=== PATIENT | male | born 2000 | race Caucasian/White ===

== ENCOUNTER 2018-10-17 19:25 | Emergency (ER) | payer OTHER ==
[2018-10-17] MEDS ORDERED: KETOROLAC TROMETHAMINE 60 MG/2 ML SDV IM ONE (21:50)
--- NOTE | 2018-10-17 21:51 | ER Document Report ---
ED Hip Pain/Injury - General Chief Complaint: Hip Pain Stated Complaint: HIP PAIN Time Seen by Provider: 10/17/18 21:40 Primary Care Provider: JOSÉ MATHEW MD [NO LOCAL MD] - Follow up as needed Mode of Arrival: Ambulatory Information source: Patient Notes: 17-year-old male presented to ED for complaint of pain to the low back bilateral pelvis is bilateral femurs. 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 He states he was discharged from the and is going through his medical discharge still. He states nothing has been done for this pain since he fell. Patient is alert oriented respirations regular and unlabored speaking in full sentences walks with a even steady gait. TRAVEL OUTSIDE OF THE [place] IN LAST 30 DAYS: No - HPI Patient complains to provider of: Injury - 9 months ago, Pain, Hip, Pelvis, Thigh Occurred: Other - Chronic Onset/Duration: Persistent Quality of pain: Achy, Sharp Pain Level: 4 Context: Other - Knee pain fell 9 months ago Symptoms since fall: Other Skin Color: Normal Rotation of extremity: None Pain with palpation of the pelvis: Yes Associated Symptoms: None Past Medical History - General Information source: Patient - Social History Smoking Status: Current Every Day Smoker - vapor Frequency of alcohol use: Social Drug Abuse: None Lives with: Family Family History: Reviewed & Not Pertinent Patient has suicidal ideation: No Patient has homicidal ideation: No - Medical History Medical History: Other - Fibromuscular dysplasia - Past Medical History Cardiac Medical History: Reports: None Pulmonary Medical History: Reports: None EENT Medical History: Reports: None Neurological Medical History: Reports: None Endocrine Medical History: Reports: None Renal/ Medical History: Reports: None Malignancy Medical History: Reports None GI Medical History: Reports: None Musculoskeletal Medical History: Reports Hx Musculoskeletal Deformity, Reports Hx Musculoskeletal Trauma Skin Medical History: Reports None Psychiatric Medical History: Reports: None Traumatic Medical History: Reports: None Infectious Medical History: Reports: None Surgical Hx: Negative Past Surgical History: Reports: None - Immunizations Immunizations up to date: Yes Hx Diphtheria, Pertussis, Tetanus Vaccination: Yes Review of Systems - Review of Systems Constitutional: No symptoms reported EENT: No symptoms reported Cardiovascular: No symptoms reported Respiratory: No symptoms reported Gastrointestinal: No symptoms reported Genitourinary: No symptoms reported Male Genitourinary: No symptoms reported Musculoskeletal: Back pain, Joint pain, Muscle pain, Muscle stiffness Skin: No symptoms reported Hematologic/Lymphatic: No symptoms reported Neurological/Psychological: No symptoms reported -: Yes All other systems reviewed and negative Physical Exam - Vital signs Vitals: Temp Pulse Resp BP Pulse Ox 98.9 F 93 H 22 176/115 H 97 10/17/18 19:41 10/17/18 19:41 10/17/18 19:41 10/17/18 19:41 10/17/18 19:41 Interpretation: Normal - General General appearance: Appears well, Alert - HEENT Head: Normocephalic, Atraumatic Eyes: Normal Pupils: PERRL - Respiratory Respiratory status: No respiratory distress Chest status: Nontender Breath sounds: Normal Chest palpation: Normal - Cardiovascular Rhythm: Regular Heart sounds: Normal auscultation Murmur: No - Abdominal Inspection: Normal Distension: No distension Bowel sounds: Normal Tenderness: Nontender Organomegaly: No organomegaly - Back Back: Normal, Tender. No: Deformity/step-off, CVA tenderness, Vertebra tenderness, Scars, Scoliosis, Wounds - Extremities General upper extremity: Normal inspection, Nontender, Normal color, Normal ROM, Normal temperature General lower extremity: Normal inspection, Nontender, Normal color, Normal ROM, Normal temperature, Normal weight bearing. No: Stephany's sign Hip: Tender - Bilateral. No: Deformity, Dislocation, Ecchymosis, Instability, Laceration, Pain with ROM, Unable to bear weight Thigh: Tender - Bilateral - Neurological Neuro grossly intact: Yes Cognition: Normal Orientation: AAOx4 Richard Coma Scale Eye Opening: Spontaneous Richard Coma Scale Verbal: Oriented Richard Coma Scale Motor: Obeys Commands [place] Coma Scale Total: 15 Speech: Normal Motor strength normal: LUE, RUE, LLE, RLE Sensory: Normal - Psychological Associated symptoms: Normal affect, Normal mood - Skin Skin Temperature: Warm Skin Moisture: Dry Skin Color: Normal Course - Re-evaluation Re-evalutation: 10/17/18 23:24 CT and x-ray report discussed with patient and written report given to patient to [facility]. As these are chronic pain patient was instructed on use of ibuprofen and Tylenol elevation and ice. Patient to [facility] with [facility] doctor for any further treatment for these areas. Patient verbalized understanding and agreement with treatment plan the patient was discharged home. Patient's blood pressure was 162/92 at discharge. This was a manual blood pressure. Patient was instructed to please follow-up with his [facility] doctor to get more blood pressure treatment as this was high for person his age. He states it is a chronic problem he understood that he needed to follow-up. - Vital Signs Vital signs: Temp Pulse Resp BP Pulse Ox 98.9 F 93 H 22 176/115 H 97 10/17/18 19:41 10/17/18 19:41 10/17/18 19:41 10/17/18 19:41 10/17/18 19:41 - Diagnostic Test Radiology reviewed: Image reviewed, Reports reviewed Discharge - Discharge Clinical Impression: Chronic pelvic pain in male, Chronic hip pain, bilateral Condition: Stable Disposition: HOME, SELF-CARE Additional Instructions: Chronic Pain Control Stress, inactivity, and depression make pain more severe regardless of the cause of the pain. Stress and poor physical condition can cause pain such as headaches and backache. Relaxation: Rest in a quiet place with your eyes closed for 20 minutes twice daily. Concentrate on a pleasant image, or simply "feel" your breathing. Clear your mind. Stress management: Deal with your "stressors." Either take action, or eliminate the stressor from your life. Don't let things hang over you. Accept those things you can't change. Nutrition: Eat small, balanced meals -- don't skip, don't overeat. Meals should be high-carbohydrate, low-sugar, low-fat. Exercise: Exercise helps painful conditions and eases stress. Get 30 minutes of moderate exercise, five days a week. Do an activity that does not flare your pain. Precautions: Pain which continues to disrupt daily activities, or which changes in nature, requires a medical evaluation. Pain Clinic referral is available. We do not manage chronic pain in the Emergency Department. 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 We do not provide repeated medication management of chronic painful conditions. If you wish, we can provide the name of local pain management physicians. Acetaminophen Acetaminophen may be taken for pain relief or fever control. It's much safer than aspirin, offering a wider range of "safe" dosages. It is safe during . Some brand names are Tylenol, Panadol, Datril, Anacin 3, Tempra, and Liquiprin. Acetaminophen can be repeated every four hours. The following are maximum recommended dosages: WEIGHT Dose Drops Elixir Chewable(80mg) (LBS.) drprs=droppers tsp=teaspoon 6 40 mg .4 ml (1/2) 6-11 80 mg .8 ml (full) 1/2 tsp 1 tab 12-16 120 mg 1 1/2 drprs 3/4 tsp 1 1/2 tabs 17-23 160 mg 2 drprs 1 tsp 2 tabs 24-30 240 mg 3 drprs 1 1/2 tsp 3 tabs 30-35 320 mg 2 tsp 4 tabs 36-41 360 mg 2 1/4 tsp 4 1/2 tabs 42-47 400 mg 2 1/2 tsp 5 tabs 48-53 480 mg 3 tsp 6 tabs 54-59 520 mg 3 1/4 tsp 6 1/2 tabs 60-64 560 mg 3 1/2 tsp 7 tabs 65-70 600 mg 3 3/4 tsp 7 1/2 tabs 71-76 640 mg 4 tsp 8 tabs 77-82 720 mg 4 1/2 tsp 9 tabs 83-88 800 mg 5 tsp 10 tabs >89 pounds or adults 650 mg to 900 mg Acetaminophen can be repeated every four hours. Maximum daily dose not to exceed 4000 mg. These maximum recommended dosages are slightly higher than the dosages written on the product container, but these dosages are very safe and well below the toxic dosage for acetaminophen. Ibuprofen Ibuprofen is an excellent, safe drug for pain control. In addition, it has potent antiinflammatory effects which are beneficial, especially in the treatment of injuries, arthritis, or tendonitis. It's best to take ibuprofen with food. Persons with ulcer disease or allergy to aspirin should notify their physician of this before taking ibuprofen. Take the medication exactly as prescribed. Don't take additional doses unless instructed to do so by your doctor. If you develop wheezing, shortness of breath, hives, faintness, stomach pain, vomiting, or dark black stools, return for re-evaluation at once. Stretching Exercises for the Back The physician has recommended that you begin stretching exercises for your back. These are often used even while the back is painful. However, you should notify the physician if the activities seem to increase your pain. PELVIC TILT: Lie flat on your back with knees bent. Tighten your stomach and buttock muscles so it flattens your lower back against the floor. Hold 10 seconds. Repeat 10 times, twice daily. KNEE RAISE: Lying on the back with knees bent, raise one knee to your chest, then the other. Hold both knees against the chest 10 seconds, then lower one knee at a time. Repeat 10 times, twice daily. PARTIAL TRUNK RAISE: Lie face down, arms at your sides. Keeping your waist on the floor, use your arms raise your chest up. Support yourself on your elbows for 30 seconds. Repeat twice daily, increasing the time to two minutes as you recover. Your CT of the pelvis and your bilateral hip x-rays do not show any obvious cause for your pain. Please follow-up with your [facility] doctor and have them reev aluate your pain to your hips and back. Please do stretching exercises to your back and pelvis and legs as tolerated until you follow-up with your primary doctor. Please slowly increase your activity to include walking as tolerated. FOLLOW-UP CARE: If you have been referred to a physician for follow-up care, call the physicians office for an appointment as you were instructed or within the next two days. If you experience worsening or a significant change in your symptoms, notify the physician immediately or return to the Emergency Department at any time for re-evaluation. Forms: Elevated Blood Pressure, Smoking Cessation Education Referrals: JOSÉ MATHEW MD [NO LOCAL MD] - Follow up as needed
--- NOTE | 2018-10-17 22:13 | RADIOLOGY REPORT (SQ) ---
EXAM DESCRIPTION: XR FEMUR BILATERAL COMPLETED DATE/TME: 10/17/2018 21:48 CLINICAL HISTORY: 17 years, Male, chronic pain after fall 8 months ago getting worse COMPARISON: None. NUMBER OF VIEWS: Eight TECHNIQUE: Frontal and lateral radiographs of the bilateral femurs were obtained. LIMITATIONS: None. FINDINGS: Visualized osseous structures are normal in appearance. Joint spaces are well-maintained. No acute fracture or dislocation is evident. IMPRESSION: No acute osseous anomaly. copyright 2010 [employer]- All Rights Reserved
--- NOTE | 2018-10-17 22:20 | RADIOLOGY REPORT (SQ) ---
EXAM DESCRIPTION: CT PELVIS WITHOUT IV CONTRAST COMPLETED DATE/TME: 10/17/2018 21:48 CLINICAL HISTORY: 17 years, Male, chronic pain after fall 8 months ago getting worse COMPARISON: None. TECHNIQUE: Noncontrast CT of the pelvis was performed. Coronal and sagittal reformations were created. Images stored on PACS. All CT scanners at this facility use dose modulation, iterative reconstruction, and/or weight based dosing when appropriate to reduce radiation dose to as low as reasonably achievable (ALARA). [facility]: Dose Right [facility]: CareDose [facility]: Dose Right [facility]: Teradose 4D [facility]: Armor5 LIMITATIONS: None. FINDINGS: Visualized portions of the abdomen show no suspicious abnormality. Focal well-corticated ossific density is noted immediately adjacent to the right lesser trochanter on image 140 of series 2. Otherwise, remaining visualized osseous structures are normal in appearance without acute fracture or dislocation. IMPRESSION: No acute osseous anomaly. Well-corticated ossific density projecting adjacent to the lesser trochanter on the right likely indicates sequela of remote avulsion injury (specifically the iliopsoas). TECHNICAL DOCUMENTATION: Quality ID # [id number]: Final reports with documentation of one or more dose reduction techniques (e.g., Automated exposure control, adjustment of the mA and/or kV according to patient size, use of iterative reconstruction technique) copyright 2011 [employer]- All Rights Reserved
[2018-10-17 23:31] VITALS: BP 162/92
== END 2018-10-17 23:10 | disposition home or self-care (01) ==
LOC: ER 19:25
DX: M25.551 Pain in right hip (principal); M25.552 Pain in left hip; R10.2 Pelvic and perineal pain; G89.29 Other chronic pain; M25.569 Pain in unspecified knee; W19.XXXA Unspecified fall, initial encounter; Y99.1 Military activity; I10 Essential (primary) hypertension; F17.290 Nicotine dependence, other tobacco product, uncomplicated
CPT/HCPCS: 72192; 73552; 99284

== ENCOUNTER → 2018-10-21 | Outpatient (CLI) | payer OTHER ==
--- NOTE | 2018-10-21 10:09 | RADIOLOGY REPORT (SQ) ---
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 TECHNIQUE: Realtime and static grayscale images acquired. Selected color Doppler, velocities and spe ctral images recorded. LIMITATIONS: None. FINDINGS: RIGHT KIDNEY: RENAL ARTERY VELOCITIES: 109 cm/sec. Segmental artery velocity 50 cm/sec. RENAL VEIN: Color doppler flow present, patent. VELOCITY RATIO: 0.82. Normal waveforms. KIDNEY: Normal size. No significant pathology. LEFT KIDNEY: RENAL ARTERY VELOCITIES: 113 cm/sec. Segmental artery velocity 52 cm/sec. RENAL VEIN: Color doppler flow present, patent. VELOCITY RATIO: 0.85. Normal waveforms. KIDNEY: Normal size. No significant pathology. BLADDER: Normal. OTHER: No other significant finding. IMPRESSION: NO DOPPLER EVIDENCE OF HEMODYNAMICALLY SIGNIFICANT RENAL ARTERY STENOSIS. COMMENT: NORMAL RENAL ARTERY/AORTA VELOCITY RATIO IS LESS THAN OR EQUAL TO 3.5. TECHNICAL DOCUMENTATION: JOB ID: [id number] [employer]- All Rights Reserved Reading location - IP/workstation name: [email or web address]
== END ==
LOC: RAD 08:18
PROVIDERS: ATTEND Surgery Vascular Surgery
DX: I77.3 Arterial fibromuscular dysplasia (principal)
CPT/HCPCS: 93975

== ENCOUNTER 2019-04-08 02:40 | Emergency (ER) | payer OTHER ==
[2019-04-08] MEDS ORDERED: ALBUTEROL SULFATE 0.083% NEB 2.5 MG/3 ML AMPUL NEB ONE (03:08)
[2019-04-08] MEDS ORDERED: PREDNISONE 20 MG TABLET PO ONE (03:09)
--- NOTE | 2019-04-08 03:13 | ER Document Report ---
ED General - General Chief Complaint: Breathing Difficulty Stated Complaint: DIFFICULTY BREATHING Time Seen by Provider: 04/08/19 03:00 TRAVEL OUTSIDE OF THE [place] IN LAST 30 DAYS: No - HPI Notes: 18-year-old male with a past medical history significant for asthma, smoking and vaping presents complaining of shortness of breath that has been getting progressively worse over the past several days. Patient states he quit smoking and vaping approximately a month ago. Patient states he thought he "outgrew" his asthma when he was in his teens but is now having symptoms similar to his asthma exacerbations when he was a child. Patient denies fever. Patient denies productive cough. Past Medical History - General Information source: Patient - Social History Smoking Status: Former Smoker Drug Abuse: None Family History: Reviewed & Not Pertinent Patient has suicidal ideation: No Patient has homicidal ideation: No - Past Medical History Cardiac Medical History: Reports: None Pulmonary Medical History: Reports: Hx Asthma EENT Medical History: Reports: None Neurological Medical History: Reports: None Endocrine Medical History: Reports: None Renal/ Medical History: Reports: None Malignancy Medical History: Reports None GI Medical History: Reports: None Musculoskeletal Medical History: Reports Hx Musculoskeletal Deformity, Reports Hx Musculoskeletal Trauma Skin Medical History: Reports None Psychiatric Medical History: Reports: None Traumatic Medical History: Reports: None Infectious Medical History: Reports: None - Immunizations Immunizations up to date: Yes Hx Diphtheria, Pertussis, Tetanus Vaccination: Yes Review of Systems - Review of Systems Constitutional: No symptoms reported EENT: No symptoms reported Cardiovascular: No symptoms reported Respiratory: Short of breath Gastrointestinal: No symptoms reported Genitourinary: No symptoms reported Male Genitourinary: No symptoms reported Musculoskeletal: No symptoms reported Skin: No symptoms reported Hematologic/Lymphatic: No symptoms reported Neurological/Psychological: No symptoms reported -: Yes All other systems reviewed and negative Physical Exam - Vital signs Vitals: Temp Pulse Resp BP Pulse Ox 97.9 F 93 20 187/126 H 94 04/08/19 02:46 04/08/19 02:46 04/08/19 02:46 04/08/19 02:46 04/08/19 02:46 - Notes Notes: PHYSICAL EXAMINATION: GENERAL: Well-appearing, well-nourished and in no acute distress. HEAD: Atraumatic, normocephalic. EYES: Pupils equal round and reactive to light, extraocular movements intact, sclera anicteric, conjunctiva are normal. ENT: nares patent, oropharynx clear without exudates. Moist mucous membranes. NECK: Normal range of motion, supple without lymphadenopathy LUNGS: Patient has some audible wheezing in his left lung field on exam. HEART: Regular rate and rhythm without murmurs ABDOMEN: Soft, nontender, normoactive bowel sounds. No guarding, no rebound. No masses appreciated. EXTREMITIES: Normal range of motion, no pitting or edema. No cyanosis. NEUROLOGICAL: No focal neurological deficits. Moves all extremities spontaneously and on command. PSYCH: Normal mood, normal affect. SKIN: Warm, Dry, normal turgor, no rashes or lesions noted. Course - Re-evaluation Re-evalutation: 04/08/19 04:24 Patient states he feels as though saying he is breathing better after his albuterol nebulizer treatment. ED MSE evaluation and results discussed with patient. All questions were answered. Emergency signs and symptoms/reasons to return to the emergency department by calling 911 discussed with patient. - Vital Signs Vital signs: Temp Pulse Resp BP Pulse Ox 97.9 F 93 20 173/108 H 97 04/08/19 02:46 04/08/19 02:46 04/08/19 02:46 04/08/19 04:01 04/08/19 04:01 - Diagnostic Test Radiology reviewed: Reports reviewed Discharge - Discharge Clinical Impression: Acute bronchitis Condition: Good Disposition: HOME, SELF-CARE Instructions: Bronchitis ([facility]) Additional Instructions: HOME CARE INSTRUCTIONS & INFORMATION: Thank you for choosing us for your medical needs. We hope you're satisfied with the care you received. After you leave, you must properly care for your problem and, at the same time, observe its progress. Any condition can change. Some illnesses can change rapidly over hours or days. If your condition worsens, return to the Emergency Department or see your physician promptly. ABOUT YOUR X-RAYS AND EKG'S: If you had an EKG or X-rays taken, they have been read by the Emergency Physician. The X-rays and EKG's will also be read by a Radiologist or Weather Analyst within 24 hours. If discrepancies are noted, you will be notified by telephone. Please be certain the ED has a correct telephone number & address where you can be reached. Also, realize that some fractures or abnormalities do not show up on initial X-rays. If your symptoms continue, see your physician. ABOUT YOUR LABORATORY TEST: If you had laboratory tests, the results have been reviewed by the Emergency Physician. Some test results (for example cultures) may not be available for several days. You will be contacted if any test result shows you need additional treatment. Please be certain the ED has a correct telephone number and address where you can be reached. ABOUT YOUR MEDICATIONS: You will receive instructions on how to take your medicine on the prescription label you receive. Additional information may be provided by the Pharmacy. If you have questions afterwards, call the ED for clarification or further instructions. Some prescribed medications may cause drowsiness. Do not perform tasks such as driving a car or operating machinery without consulting your Pharmacist. If you feel you need a refill of pain medication, your condition will need re-evaluation. Please do not call for a refill of any medication. ABOUT YOUR SIGNATURE: Signature of this document acknowledges to followin. Understanding that you received emergency treatment and that you may be released before al medical problems are known or treated. Please be certain the ED has a correct phone number & address where you can be reached. 2. Acknowledgement that you will arrange for follow-up care as recommended. 3. Authorization for the Emergency Physician to provide information to your follow-up Physician in order to maximize your care. AT ANY TIME, IF YOUR SYMPTOMS CHANGE SIGNIFICANTLY OR WORSEN OR YOU DEVELOP NEW SYMPTOMS, RETURN TO THE EMERGENCY DEPARTMENT IMMEDIATELY FOR RE-EVALUATION. OUR GOAL IS TO PROVIDE EXCELLENT MEDICAL CARE! WE HOPE THAT WE HAVE MET YOUR EXPECTATIONS DURING YOUR EMERGENCY DEPARTMENT VISIT AND THAT YOU FEEL YOU HAVE RECEIVED EXCELLENT CARE! Return to the Emergency Department without delay if any worse. Prescriptions: Prednisone [Deltasone 20 mg Tablet] 3 tab PO DAILY 4 Days #12 tablet Albuterol Sulfate [Proair HFA Inhalation Aerosol 8.5 gm MDI] 2 puff IH Q4H PRN #1 [id number] PRN Reason: Referrals: RIC COON MD [HONORARY] - 04/10/19
--- NOTE | 2019-04-08 03:42 | RADIOLOGY REPORT (SQ) ---
EXAM DESCRIPTION: XR CHEST 1 VIEW COMPLETED DATE/TME: 04/08/2019 03:08 CLINICAL HISTORY: 18 years, Male, dyspnea COMPARISON: None. NUMBER OF VIEWS: One TECHNIQUE: AP view of the chest LIMITATIONS: None. FINDINGS: Lungs are clear. The heart is normal in size. There is no pneumothorax or pleural effusion. There is no acute fracture. IMPRESSION: No acute cardiopulmonary abnormality copyright 2010 [employer]- All Rights Reserved
[2019-04-08 04:52] VITALS: BP 165/125
== END 2019-04-08 04:52 | disposition home or self-care (01) ==
LOC: ER 02:40
DX: J20.9 Acute bronchitis, unspecified (principal); F17.200 Nicotine dependence, unspecified, uncomplicated
CPT/HCPCS: 94640; 99284; 71045; J7512

== ENCOUNTER 2019-06-21 04:43 | Emergency (ER) | payer SELFPAY ==
[2019-06-21] MEDS ORDERED: PREDNISONE 20 MG TABLET PO ONE (04:55)
[2019-06-21] MEDS ORDERED: IPRATROPIUM/ALBUTEROL 0.5-2.5 MG/3 ML AMPUL NEB ONE (04:55)
[2019-06-21] MEDS: ALBUTEROL SULFATE 0.083% NEB 2.5 MG/3 ML AMPUL NEB SCH ×2 (05:04→06:14)
--- NOTE | 2019-06-21 06:04 | ER Document Report ---
ED General - General Chief Complaint: Shortness Of Breath Stated Complaint: BREATHING DIFFICULTY Time Seen by Provider: 06/21/19 05:59 Mode of Arrival: Ambulatory Information source: Patient TRAVEL OUTSIDE OF THE U.S. IN LAST 30 DAYS: No - HPI Onset: Other - over the last month or so Onset/Duration: Gradual Quality of pain: No pain Severity: Mild Pain Level: Denies Associated symptoms: Shortness of breath, Other - wheezing, cough Exacerbated by: Denies Relieved by: Denies Similar symptoms previously: Yes - with prior asthma flare ups Recently seen / treated by doctor: No Notes: 18 year old male with a history of Asthma here for mild wheezing and shortness of breath off and on for the last month or so in the setting of running out of his albuterol inhaler. The patient was last seen in this ER in March 2019 for the same symptoms. The patient is not on a daily inhaled steroid. The patient has a PCP but he has not seen him in some time. The patient denies fevers, chills, sweats productive cough, sore throat. The patient says his asthma seems the worst when laying down at night to go to bed. - Related Data Allergies/Adverse Reactions: No Known Allergies Allergy (Unverified 06/21/19 04:52) Past Medical History - General Information source: Patient - Social History Smoking Status: Current Every Day Smoker Chew tobacco use (# tins/day): No Frequency of alcohol use: None Drug Abuse: None Family History: Reviewed & Not Pertinent Patient has suicidal ideation: No Patient has homicidal ideation: No Pulmonary Medical History: Reports: Hx Asthma Musculoskeletal Medical History: Reports Hx Musculoskeletal Deformity, Reports Hx Musculoskeletal Trauma - Immunizations Immunizations up to date: Yes Hx Diphtheria, Pertussis, Tetanus Vaccination: Yes Review of Systems - Review of Systems Constitutional: No symptoms reported EENT: No symptoms reported Cardiovascular: No symptoms reported Respiratory: Short of breath, Wheezing Gastrointestinal: No symptoms reported Genitourinary: No symptoms reported Male Genitourinary: No symptoms reported Musculoskeletal: No symptoms reported Skin: No symptoms reported Hematologic/Lymphatic: No symptoms reported Neurological/Psychological: No symptoms reported -: Yes All other systems reviewed and negative Physical Exam - Vital signs Vitals: Temp Pulse Resp BP Pulse Ox 97.5 F 57 L 18 142/94 H 98 06/21/19 04:46 06/21/19 04:46 06/21/19 04:46 06/21/19 04:46 06/21/19 04:46 - Notes Notes: GENERAL: Well-appearing, well-nourished and in no acute distress. HEAD: Atraumatic, normocephalic. EYES: Pupils equal round and reactive to light, extraocular movements intact, sclera anicteric, conjunctiva are normal. ENT: TMs normal, nares patent, oropharynx clear without exudates. Moist mucous membranes. NECK: Normal range of motion, supple without lymphadenopathy or JVD. LUNGS: Breath sounds clear to auscultation bilaterally and equal. No wheezes rales or rhonchi. HEART: Regular rate and rhythm without murmurs, rubs or gallops. ABDOMEN: Soft, nontender, normoactive bowel sounds. No guarding, no rebound. No masses appreciated. EXTREMITIES: Normal range of motion, no pitting or edema. No clubbing or cyanosis. NEUROLOGICAL: Cranial nerves II through XII grossly intact. Normal speech, normal gait. PSYCH: Normal mood, normal affect. SKIN: Warm, Dry, normal turgor, no rashes or lesions noted. Course - Re-evaluation Re-evalutation: 06/21/19 06:02 The patient has run out of his inhaler. He has no wheezing here in the ER. Will prescribe an Albuterol rescue inhaler and have the patient follow up with his PCP to discuss starting a daily inhaled steroid given the frequency of his asthma flares. - Vital Signs Vital signs: Temp Pulse Resp BP Pulse Ox 97.5 F 57 L 18 142/94 H 98 06/21/19 04:46 06/21/19 04:46 06/21/19 04:46 06/21/19 04:46 06/21/19 04:46 Discharge - Discharge Clinical Impression: Asthma Qualifiers: Asthma severity: moderate Asthma persistence: unspecified Asthma complication type: uncomplicated Qualified Code(s): J45.909 - Unspecified asthma, uncomplicated Disposition: HOME, SELF-CARE Instructions: Asthma ([facility]) Additional Instructions: Use an Albuterol Inhaler as needed for wheezing and shortness of breath. Follow up with your primary care doctor to discuss possibly starting on a daily inhaled steroid. Prescriptions: Albuterol Sulfate [Proair HFA Inhalation Aerosol 8.5 gm MDI] 2 puff IH Q4H PRN #1 mdi PRN Reason:
[2019-06-21 06:20] VITALS: BP 110/89
--- NOTE | 2019-06-21 08:03 | EKG REPORT ---
SEVERITY:- NORMAL ECG - SINUS RHYTHM : Confirmed by: Venus Sanabria MD 21-Jun-2019 08:02:28
== END 2019-06-21 06:22 | disposition home or self-care (01) ==
LOC: ER 04:43
DX: J45.909 Unspecified asthma, uncomplicated (principal); R06.02 Shortness of breath; F17.200 Nicotine dependence, unspecified, uncomplicated
CPT/HCPCS: 93005; 94640; 99284; 93010; J7512; J7620

== ENCOUNTER 2019-11-13 20:25 | Emergency (ER) | payer SELFPAY ==
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
[2019-11-13] MEDS ORDERED: NORMAL SALINE 1000 ML 1,000 ML IV ONE (20:57)
--- NOTE | 2019-11-13 21:05 | ER Document Report ---
ED Medical Screen (RME) - General Chief Complaint: Possible Overdose Stated Complaint: IVC Time Seen by Provider: 11/13/19 20:48 Mode of Arrival: Wheelchair Information source: Patient Notes: Patient presents with law enforcement under IVC for attempted suicide. Patient reports taking handfuls of pills. Patient states that people were chasing him and was attempting to end his life. Spoke with patient's who states that he became upset whenever her command was trying to enter their home and things escalated. Patient's states that they are in the process of getting . Patient acknowledges taking lisinopril and hydrochlorothiazide although cannot state how many pills he took. Patient does present hypotensive. I have greeted and performed a rapid initial assessment of this patient. A comprehensive ED assessment and evaluation of the patient, analysis of test results and completion of the medical decision making process will be conducted by additional ED providers. TRAVEL OUTSIDE OF THE [place] IN LAST 30 DAYS: No - Related Data Allergies/Adverse Reactions: No Known Allergies Allergy (Unverified 06/21/19 04:52) Home Medications: HCTZ. lisinopeil Past Medical History - Social History Frequency of alcohol use: None Drug Abuse: None Pulmonary Medical History: Reports: Hx Asthma Musculoskeltal Medical History: Reports Hx Musculoskeletal Deformity, Reports Hx Musculoskeletal Trauma - Immunizations Immunizations up to date: Yes Hx Diphtheria, Pertussis, Tetanus Vaccination: Yes Physical Exam - Vital signs Vitals: Temp Pulse Resp BP Pulse Ox 98.6 F 66 16 84/45 L 96 11/13/19 20:29 11/13/19 20:29 11/13/19 20:29 11/13/19 20:29 11/13/19 20:29 - General General appearance: Alert Notes: Pale, hypotensive - Psychological Associated symptoms: Flat affect Course - Re-evaluation Re-evalutation: 11/13/19 21:02 Called and spoke with poison control who states that if patient only took hydrochlorothiazide and lisinopril they advise monitoring for any hypotension, bradycardia and hyperkalemia. They recommend supportive care, IV fluids and obtain a CMP, EKG, CK and magnesium. They recommend observing for 6 hours. If it is discovered that patient took amlodipine as well they advise calling back for further recommendations. - Vital Signs Vital signs: Temp Pulse Resp BP Pulse Ox 98.6 F 66 16 84/45 L 96 11/13/19 20:44 11/13/19 20:29 11/13/19 20:29 11/13/19 20:29 11/13/19 20:29
[2019-11-13] MEDS ORDERED: ACTIVATED CHARCOAL 25 GM BOTTLE PO ONE (21:09)
--- NOTE | 2019-11-13 21:42 | ER Document Report ---
ED Psych Disorder / Suicide - General Chief Complaint: Possible Overdose Stated Complaint: IVC Time Seen by Provider: 11/13/19 20:48 Mode of Arrival: Wheelchair Information source: Patient Notes: 18-year-old male presented to ED with long fourth month for taken a handful of pills. The patient states that he was having problems with his significant and he had taken a handful of her pills to include lisinopril and hydrochlorothiazide. He states he took some of his other medicines as well. He states his is leaving him and he became very upset. He is refusing any treatment he would not let labs redrawn refused the charcoal. When he first came in his blood pressure was very low his blood pressure now is 128/78. I have spoken with Dr. sauceda who states that we need to get the blood work even if we have to restrain him. Patient is absolutely refusing any blood work and IV fluids. Patient states he did tell the police that he wanted to because nobody cared about him and that someone was chasing him and trying to kill him. When police found him he ran away from the place when they were trying to find him to find out how he was. Dates nobody wants to help him everybody wants to hurt him. He states this is against his orthodoxy believes to put IVs and draw blood from him and that is why he does not want a strong his blood or putting IVs in him. TRAVEL OUTSIDE OF THE [place] IN LAST 30 DAYS: No - HPI Patient complains to provider of: Aggression, Agitated, Overdose, Suicidal ideation, Suicidal attempt Onset: Just prior to arrival Onset was: Sudden Quality of pain: No pain Severity: None Pain Level: Denies Suicide Risk Factors: Other - Sleeve and name Situational problems related to: Spouse Suicide Attempt Method: Overdose Overdose of: Anti-depressants, Other - Blood pressure medications Strength: Lisinopril hydrochlo Amount: Undetermined Time of ingestion: 16:30 Normal mood: No Associated symptoms: Aggressive, Angry Similar symptoms previously: Yes - Related Data Allergies/Adverse Reactions: No Known Allergies Allergy (Unverified 06/21/19 04:52) Home Medications: HCTZ. lisinopeil Past Medical History - General Information source: Patient - Social History Smoking Status: Current Every Day Smoker Cigarette use (# per day): Yes - ppd Smoking Education Provided: Yes - 4 min Frequency of alcohol use: None Drug Abuse: None Lives with: Family Family History: Reviewed & Not Pertinent Patient has homicidal ideation: No - Past Medical History Cardiac Medical History: Reports: None Pulmonary Medical History: Reports: Hx Asthma EENT Medical History: Reports: None Neurological Medical History: Reports: None Endocrine Medical History: Reports: None Renal/ Medical History: Reports: None Malignancy Medical History: Reports None GI Medical History: Reports: None Musculoskeletal Medical History: Reports Hx Musculoskeletal Deformity, Reports Hx Musculoskeletal Trauma Psychiatric Medical History: Reports: None Traumatic Medical History: Reports: None Infectious Medical History: Reports: None Surgical Hx: Negative Past Surgical History: Reports: None - Immunizations Immunizations up to date: Yes Hx Diphtheria, Pertussis, Tetanus Vaccination: Yes Review of Systems - Review of Systems Constitutional: No symptoms reported EENT: No symptoms reported Cardiovascular: No symptoms reported Respiratory: No symptoms reported Gastrointestinal: No symptoms reported Genitourinary: No symptoms reported Male Genitourinary: No symptoms reported Musculoskeletal: No symptoms reported Skin: No symptoms reported Hematologic/Lymphatic: No symptoms reported Neurological/Psychological: No symptoms reported, Depression, Suicidal ideation, Other - Took handful of pills -: Yes All other systems reviewed and negative Physical Exam - Vital signs Vitals: Temp Pulse Resp BP Pulse Ox 98.6 F 66 16 84/45 L 96 11/13/19 20:29 11/13/19 20:29 11/13/19 20:29 11/13/19 20:29 11/13/19 20:29 Interpretation: Normal - General General appearance: Appears well, Alert - HEENT Head: Normocephalic, Atraumatic Eyes: Normal Pupils: PERRL - Respiratory Respiratory status: No respiratory distress Chest status: Nontender Breath sounds: Normal Chest palpation: Normal - Cardiovascular Rhythm: Regular Heart sounds: Normal auscultation Murmur: No - Abdominal Inspection: Normal Distension: No distension Bowel sounds: Normal Tenderness: Nontender Organomegaly: No organomegaly - Back Back: Normal, Nontender - Extremities General upper extremity: Normal inspection, Nontender, Normal color, Normal ROM, Normal temperature General lower extremity: Normal inspection, Nontender, Normal color, Normal ROM, Normal temperature, Normal weight bearing. No: Stephany's sign - Neurological Neuro grossly intact: Yes Cognition: Normal Orientation: AAOx4 Vinton Coma Scale Eye Opening: Spontaneous Richard Coma Scale Verbal: Oriented V[place] Coma Scale Motor: Obeys Commands Vinton Coma Scale Total: 15 Speech: Normal Motor strength normal: LUE, RUE, LLE, RLE Sensory: Normal - Psychological Associated symptoms: Aggressive, Agitated, Angry, Uncooperative - Skin Skin Temperature: Warm Skin Moisture: Dry Skin Color: Normal Course - Re-evaluation Re-evalutation: 11/13/19 22:37 Restraints were applied when patient would not cooperate and was very aggressive with the nurse. He has now come down he states he would leave his IVs and in his monitoring equipment in place if he could get out of the restraints. He states he needs to go to the bathroom at this time. I have told him that the restraints will be removed at this time as long as he is not aggressive with the nurses and cooperates with this treatment. He has verbalized that he will try this. Nurse has been told to let me know if he becomes aggressive again. - Vital Signs Vital signs: Temp Pulse Resp BP Pulse Ox 98.6 F 95 16 107/56 L 97 11/15/19 09:53 11/15/19 09:53 11/15/19 09:53 11/15/19 09:53 11/15/19 09:53 - Laboratory Result Diagrams: 11/13/19 21:45 11/13/19 21:45 Laboratory results interpreted by me: 11/13/19 11/13/19 11/13/19 21:45 21:45 22:42 WBC 13.1 H Hgb 17.1 H Absolute Neuts (auto) 9.4 H Chloride 108 H Creatinine 1.61 H Est GFR (MDRD) Non-Af 55 L Magnesium 2.8 H Total Protein 8.6 H Albumin 5.4 H Urine Ketones TRACE H Salicylates < 1.0 L Acetaminophen < 10 L Discharge - Discharge Clinical Impression: possible overdose htn medications, Suicidal ideation Disposition: PSYCH HOSP/UNIT
[2019-11-13 22:38] LABS: ALBUMIN 5.4 g/dL (3.5-5.0); ALKALINE PHOSPHATASE 93 U/L (38-126); ANION GAP 11 (5-19); ASPARTATE AMINO TRANSFERASE 28 U/L (17-59); BILIRUBIN,DIRECT 0.1 mg/dL (0.0-0.4); BILIRUBIN,TOTAL 1.1 mg/dL (0.2-1.3); BLOOD UREA NITROGEN 17 mg/dL (7-20); CALCIUM 10.1 mg/dL (8.4-10.2); CARBON DIOXIDE 23 mmol/L (22-30); CHLORIDE 108 mmol/L (98-107); CREATINE KINASE 142 U/L (55-170); GLUCOSE 99 mg/dL (75-110); TOTAL PROTEIN 8.6 g/dL (6.3-8.2)
[2019-11-13 22:42] LABS: ACETAMINOPHEN < 10 ug/mL (10-30); ALCOHOL < 10 mg/dL (NONE DETECTED); SALICYLATE < 1.0 mg/dL (2.0-20.0)
[2019-11-13 22:58] LABS: APPEARANCE,URINE CLEAR; BILIRUBIN,URINE NEGATIVE (NEGATIVE); COLOR,URINE STRAW; GLUCOSE, URINE NEGATIVE (NEGATIVE); KETONES,URINE TRACE mg/dL (NEGATIVE); LEUKOCYTE ESTERASE,URINE NEGATIVE (NEGATIVE); NITRITE,URINE NEGATIVE (NEGATIVE); PROTEIN,URINE NEGATIVE (NEGATIVE); URINE SPECIFIC GRAVITY 1.012; UROBILINOGEN,URINE NEGATIVE mg/dL (<2.0)
[2019-11-13 23:12] LABS: URINE AMPHETAMINES SCREEN NEGATIVE; URINE BARBITURATES SCREEN NEGATIVE; URINE BENZODIAZEPINES SCREEN NEGATIVE; URINE COCAINE SCREEN NEGATIVE; URINE MARIJUANA (THC) SCREEN NEGATIVE; URINE METHADONE SCREEN NEGATIVE; URINE PHENCYCLIDINE SCREEN NEGATIVE
[2019-11-13 23:58] LABS: ABSOLUTE EOSINOPHILS # (AUTO) 0.4 10^3/uL (0.0-0.6); ABSOLUTE LYMPHOCYTES (AUTO) 2.4 10^3/uL (0.5-4.7); ABSOLUTE MONOCYTES (AUTO) 0.8 10^3/uL (0.1-1.4); ABSOLUTE NEUT (AUTO) 9.4 10^3/uL (1.7-8.2); BASOPHILS % (AUTO) 0.2 % (0-2); EOSINOPHILS % (AUTO) 3.3 % (0-6); HEMATOCRIT 49.7 % (37.9-51.0); HEMOGLOBIN 17.1 g/dL (13.5-17.0); LYMPHOCYTES % (AUTO) 18.6 % (13-45); MEAN CORPUSCULAR HEMOGLOBIN 33.1 pg (27.0-33.4); MEAN CORPUSCULAR HGB CONC 34.5 g/dL (32.0-36.0); MEAN CORPUSCULAR VOLUME 96 fl (80-97); PLATELET COUNT 252 10^3/uL (150-450); RED BLOOD COUNT 5.18 10^6/uL (4.35-5.55); RED CELL DISTRIBUTION WIDTH 12.9 % (11.5-14.0); SEGMENTED NEUTROPHILS % (AUTO) 71.9 % (42-78); TOTAL CELLS COUNTED % (AUTO) 100 %; WHITE BLOOD COUNT 13.1 10^3/uL (4.0-10.5)
--- NOTE | 2019-11-14 01:07 | EKG REPORT ---
SEVERITY:- NORMAL ECG - SINUS RHYTHM : Confirmed by: Venus Sanabria MD 14-Nov-2019 01:07:05
--- NOTE | 2019-11-14 17:41 | ER Document Report ---
Doctor's Note Notes: 11/14/19 17:40 Patient's vital signs and previous labs, diagnostic images reviewed. Reviewed mental health notes, nurse's notes and previous providers notes. VSS. Pt is in no distress at this time. Denies any SI or HI. General: A&Ox3. Answers questions appropriately. Heart: RRR Lungs: CTAB Psych: Flat affect A/P: Continue monitoring and rec's per MH. Normal diet consider discharge home once parents are present
[2019-11-14] MEDS: OLANZAPINE 2.5 MG TABLET PO SCH (17:56)
[2019-11-15] MEDS: OLANZAPINE 2.5 MG TABLET PO SCH (09:52)
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
--- NOTE | 2019-11-15 15:04 | ER Document Report ---
Doctor's Note Notes: 11/15/19 15:02 18-year-old male resting comfortably in his bed. States that he denies any headaches, fevers, chills or additional symptoms. I discussed with patient that he has been cleared by mental health and they recommend Zyprexa 2.5 mg twice daily. He has a follow-up with mental health scheduled on Wednesday. His mag is mildly elevated at 2.8 his elevated creatinine at 1.62. Delmar acknowledges that he needs to follow up for these labs and wants to restart the zyprexa. Acknowledges importance of keeping mental health appointment. States he has not had an appetite until today and has not been eating or drinking appropriately until today. Recommend patient follow-up with his primary care provider for his elevated creatinine and elevated magnesium. I have reviewed patients chart. V/s are normal. He is medically cleared. Will discharge patient. General: Pleasant, acute, oriented HEART: RRR, no murmurs rubs or gallops Lungs: CTABL Abdomen: Soft, non tender Skin: Dry, warm, normal turgor
--- NOTE | 2019-11-15 15:06 | ER Document Report ---
Doctor's Note Notes: 11/15/19 15:06 18-year-old male resting comfortably in his bed. States that he denies any headaches, fevers, chills or additional symptoms. I discussed with patient that he has been cleared by mental health and they recommend Zyprexa 2.5 mg twice daily. He has a follow-up with mental health scheduled on Wednesday. His mag is mildly elevated at 2.8 his elevated creatinine at 1.62. States he has not had an appetite until today and has not been eating or drinking appropriately until today. Recommend patient follow-up with his primary care provider for his elevated creatinine and elevated magnesium. Patient's vital signs are previous labs, diagnostic imaging reviewed. Reviewed mental health notes, nurses notes and previous vital signs. Patient is in no distress at this time denies any SI or HI. Cleared medically. General: alert, oriented Heart: RRR Lungs: CTABL Skin: Dry, warm, good turgor A&P: Follow up with mental health provider. 11/16/19 19:01
[2019-11-15 15:50] VITALS: BP 123/66
== END 2019-11-15 16:15 | disposition home or self-care (01) ==
LOC: ER 20:25
DX: Z04.6 Encounter for general psychiatric examination, requested by authority (principal); T43.202A Poisoning by unspecified antidepressants, intentional self-harm, initial encounter; I95.9 Hypotension, unspecified; J45.909 Unspecified asthma, uncomplicated; R79.89 Other specified abnormal findings of blood chemistry; F32.9 Major depressive disorder, single episode, unspecified; F17.210 Nicotine dependence, cigarettes, uncomplicated; Z63.5 Disruption of family by separation and divorce; Z79.899 Other long term (current) drug therapy; Z78.1 Physical restraint status
CPT/HCPCS: 93005; 99285; 96360; 36415; 80307 ×4; 82550; 83735; 85025; 80053; 81001; 93010; J3490 ×2; J7030